=== PATIENT | female | born 1970 | race Caucasian/White ===

== ENCOUNTER 2018-07-25 01:11 | Observation (INO) ==
[2018-07-25] MEDS ORDERED: Aspirin 81 MG TAB.CHEW PO ONE (01:20)
[2018-07-25] MEDS ORDERED: Nitroglycerin 0.4 MG TAB.SUBL SL ONE (01:20)
--- NOTE | 2018-07-25 01:24 | Emergency Department Note ---
Disposition Clinical Impression: Unstable angina pectoris Anemia Qualifiers: Anemia type: unspecified type Qualified Code(s): D64.9 - Anemia, unspecified Chest pain Qualifiers: Chest pain type: unspecified Qualified Code(s): R07.9 - Chest pain, unspecified Disposition: Admitted As Inpatient Condition: Fair Referrals: Keely Lester DO [Primary Care Provider] - Time of Disposition: 02:55 General Adult HPI - General Stated complaint: Possible Heart attack Time Seen by Provider: 07/25/18 01:20 Source: patient Mode of arrival: EMS Limitations: no limitations Nursing Notes Reviewed: Yes Vital Signs Reviewed: Yes - History of Present Illness HPI Narrative: 47-year-old female history of hypertension, CAD with stent 2 years ago presents for evaluation of left shoulder neck pain. Patient states the similar presentation to her prior heart attack. Patient states that symptom onset was around 8:00 this evening. Patient noted left shoulder neck pain. Patient also notes some shortness of breath. No vomiting or diaphoresis. Patient did take 2 nitroglycerin prior to ED arrival and notes pain has improved. Patient denies any abdominal pain. No fevers or cough. No history of DVT or PE. Pain Scale: 2 - Related Data Previous Rx's Medication Instructions Recorded Aspirin 81 mg PO DAILY #30 tab.chew 06/19/16 Clopidogrel [Plavix] 75 mg PO DAILY #30 tablet 06/19/16 Loratadine/Pseudophed (12 HR) 1 each PO BID #20 tab.er.12h 12/20/16 [Claritin D (12HR)] Promethazine/Dextromethorphan 5 ml PO Q6HR PRN #90 ml 03/01/18 [Promethazine-Dm Syrup] Allergies Allergy/AdvReac Type Severity Reaction Status Date / Time No Known Allergies Allergy Verified 03/01/18 10:56 All systems ED: reviewed and negative except as stated. Constitutional: Denies: fever Cardiovascular: Denies: chest pain Respiratory: Reports: dyspnea. 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, bilateral tubal ligation - Social History Smoking Status: Current every day smoker Smokeless Tobacco Status: No Alcohol use: Reports: none Drug use: Reports: none Physical Exam - General Limitations: no limitations General appearance: alert, in no apparent distress, obese - Head Head exam: atraumatic, normocephalic, normal inspection - Eye Eye exam: Present: normal appearance, PERRL, EOMI - ENT ENT exam: normal exam, mucous membranes moist - Neck Neck exam: Present: normal inspection - Chest Chest inspection: Present: normal inspection, symmetric chest wall rise - Respiratory Respiratory exam: Absent: respiratory distress, accessory muscle use - Cardiovascular Cardiovascular exam: Present: regular rate, normal rhythm. Absent: systolic murmur - Abdominal Exam Abdominal exam: Present: soft, Non-Tender - Extremities Exam Extremities exam: Present: normal inspection. Absent: pedal edema - Back Exam Back exam: Present: normal inspection - Neurological Exam Neurological exam: Present: alert, oriented X3, CN II-XII intact - Skin Skin exam: Present: warm, dry, intact, normal color Course Course Narrative: Patient seen and examined. Patient will get cardiopulmonary evaluation with EKG, chest x-ray troponin. Concerning history of unstable angina. Disposition likely admission. - Reevaluation(s) Reevaluation #1: Patient seen and examined. Patient denies any pain. Patient's ED course discussed with her. Patient's agreeable for admission. Time: 02:52 Vital Signs Temperature 98.3 F 07/25/18 01:13 Pulse Rate 96 07/25/18 01:13 Respiratory Rate 17 07/25/18 01:13 Blood Pressure 110/57 07/25/18 01:13 O2 Sat by Pulse Oximetry 100 07/25/18 01:13 Temperature 98.3 F 07/25/18 01:13 Pulse Rate 86 07/25/18 03:07 Respiratory Rate 16 07/25/18 03:07 Blood Pressure 108/72 07/25/18 03:07 O2 Sat by Pulse Oximetry 97 07/25/18 03:07 Oxygen Delivery Oxygen Delivery Room Air Medical Decision Making - [facility] Narrative Medical decision making narrative: Patient's presentation is concerning for unstable angina. Patient pain improved after 2 nitroglycerin prehospital. Patient received aspirin. Patient's been chest pain-free in the ED. Patient's labs reviewed showed no evidence of any acute abnormality. No concerns for PE or dissection. Given the patient's history concerning for unstable angina the patient will be admitted to the hospital service for further continued cardiopulmonary monitoring and evaluation. Patient was agreeable with this plan of care. - Lab Data Lab results reviewed: Yes I reviewed the patient's lab results. Result diagrams: 07/25/18 01:35 07/25/18 01:35 Lab Results 07/25/18 07/25/18 07/25/18 Range/Units 01:35 01:35 01:35 WBC 9.0 (4.3-11.1) K/mcL RBC 4.14 (3.82-4.97) M/mcL Hgb 9.6 L (11.5-15.4) g/dL Hct 32.0 L (35.3-44.9) % MCV 77.3 L (83.0-100.0) fL MCH 23.2 L (28.0-33.3) pg MCHC 30.0 L (31.6-35.5) g/dL RDW 18.7 H (11.5-14.5) % Plt Count 369 (140-400) K/mcL MPV 9.9 (9.4-12.4) fL Immature Gran % 0.3 (0-4) % Seg Neutrophils % 67.2 % Lymphocytes % 23.9 % Monocytes % 5.0 % Eosinophils % 2.9 % Basophils % 0.7 % Neutrophils # 6.0 (1.6-8.9) K/mcL Lymphocytes # 2.1 (0.6-4.6) K/mcL Monocytes # 0.5 (0.0-1.3) K/mcL Eosinophils # 0.3 (0.0-0.6) K/mcL Basophils # 0.1 (0.0-0.2) K/mcL PT 12.6 H (9.4-12.1) Seconds INR 1.1 Sodium 137 (136-145) mEq/L Potassium 3.6 (3.5-5.1) mEq/L Chloride 106 (98-107) mEq/L Carbon Dioxide 25 (23-29) mEq/L BUN 12 (6-20) mg/dL Creatinine 0.75 (0.60-1.20) mg/dL Est GFR ( Amer) > 60 (> 60) Est GFR (Non-Af Amer) > 60 (> 60) BUN/Creatinine Ratio 16 (6-26) Glucose 148 H (70-105) mg/dL Calculated Osmolality 287 (280-300) Calcium 9.0 (8.6-10.3) mg/dL Troponin I < 0.03 (< 0.04) ng/mL - Radiology Data Radiology results reviewed: Yes I reviewed the patient's radiology results. Chest X-Ray 07/25/18 01:20 IMPRESSION: No acute findings. D/ / Vinod Theodore / Vinod Theodore Interpreting Provider: Vinod Theodore - EKG Data EKG #1 EKG attestation: Yes I reviewed and interpreted this EKG. EKG shows normal: sinus rhythm Rate: normal Rhythm: NSR [place]/QRS: normal When compared to previous EKG there are: no significant changes Interpretation: no acute changes, nonspecific ST-T wave changes [place] - [place] Situation: Demographics Background: Presenting Complaint Assessment: Vital Signs, Course and respsone to treatment, Patient/Family Expectation Recommendation: Barrier(s) to disposition, Recommendation based on pending studies, treatments, or consults S.B.ATaj Report Given to: Dr. Sarah Rodriguez Time: 03:19
[2018-07-25 01:44] LABS: Basophils # 0.1 K/mcL (0.0-0.2); Basophils % 0.7 %; Eosinophils # 0.3 K/mcL (0.0-0.6); Eosinophils % 2.9 %; Hemoglobin 9.6 g/dL (11.5-15.4); Immature Granulocytes % 0.3 % (0-4); Lymphocytes # 2.1 K/mcL (0.6-4.6); Lymphocytes % 23.9 %; Mean Corpuscular Hemoglobin 23.2 pg (28.0-33.3); Mean Corpuscular Volume 77.3 fL (83.0-100.0); Mean Platelet Volume 9.9 fL (9.4-12.4); Monocytes # 0.5 K/mcL (0.0-1.3); Platelet Count 369 K/mcL (140-400); Red Blood Count 4.14 M/mcL (3.82-4.97); Red Cell Distribution Width 18.7 % (11.5-14.5); Segmented Neutrophils % 67.2 %
[2018-07-25 01:55] LABS: INR 1.1; Prothrombin Time 12.6 Seconds (9.4-12.1)
[2018-07-25 02:04] LABS: BUN/Creatinine Ratio 16 (6-26); Blood Urea Nitrogen 12 mg/dL (6-20); Carbon Dioxide 25 mEq/L (23-29); Chloride 106 mEq/L (98-107); Glucose 148 mg/dL (70-105); Osmolality,Calculated 287 (280-300); Potassium 3.6 mEq/L (3.5-5.1); Sodium 137 mEq/L (136-145); Troponin I < 0.03 ng/mL (< 0.04); eGFR For Non-African Americans > 60 (> 60)
--- NOTE | 2018-07-25 02:51 | Emergency Department Note ---
Disposition Clinical Impression: Unstable angina pectoris Anemia Qualifiers: Anemia type: unspecified type Qualified Code(s): D64.9 - Anemia, unspecified Chest pain Qualifiers: Chest pain type: unspecified Qualified Code(s): R07.9 - Chest pain, unspecified Disposition: Admitted As Inpatient Condition: Fair General Adult HPI - General Chief complaint: ED Chest Pain Stated complaint: Possible Heart attack Time Seen by Provider: 07/25/18 01:20 Source: patient Mode of arrival: EMS Limitations: no limitations Nursing Notes Reviewed: Yes Vital Signs Reviewed: Yes - History of Present Illness Pain Scale: 2 - Related Data Previous Rx's Medication Instructions Recorded Aspirin 81 mg PO DAILY #30 tab.chew 06/19/16 Clopidogrel [Plavix] 75 mg PO DAILY #30 tablet 06/19/16 Loratadine/Pseudophed (12 HR) 1 each PO BID #20 tab.er.12h 12/20/16 [Claritin D (12HR)] Promethazine/Dextromethorphan 5 ml PO Q6HR PRN #90 ml 03/01/18 [Promethazine-Dm Syrup] Allergies Allergy/AdvReac Type Severity Reaction Status Date / Time No Known Allergies Allergy Verified 03/01/18 10:56 Constitutional: Denies: fever Cardiovascular: Denies: chest pain Respiratory: Reports: dyspnea. 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, bilateral tubal ligation - Social History Smoking Status: Current every day smoker Smokeless Tobacco Status: No Alcohol use: Reports: none Drug use: Reports: none Physical Exam - General Limitations: no limitations General appearance: alert, in no apparent distress, obese Course Vital Signs Temperature 98.3 F 07/25/18 01:13 Pulse Rate 96 07/25/18 01:13 Respiratory Rate 17 07/25/18 01:13 Blood Pressure 110/57 07/25/18 01:13 O2 Sat by Pulse Oximetry 100 07/25/18 01:13 Temperature 98.3 F 07/25/18 01:13 Pulse Rate 86 07/25/18 03:07 Respiratory Rate 07/25/18 03:38 Blood Pressure 95/61 07/25/18 03:38 O2 Sat by Pulse Oximetry 97 07/25/18 03:07 Oxygen Delivery Oxygen Delivery Room Air Medical Decision Making - Medical Records Medical records reviewed: Yes I reviewed the patient's medical records. - Lab Data Lab results reviewed: Yes I reviewed the patient's lab results. Result diagrams: 07/25/18 01:35 07/25/18 01:35 Lab Results 07/25/18 07/25/18 07/25/18 Range/Units 01:35 01:35 01:35 WBC 9.0 (4.3-11.1) K/mcL RBC 4.14 (3.82-4.97) M/mcL Hgb 9.6 L (11.5-15.4) g/dL Hct 32.0 L (35.3-44.9) % MCV 77.3 L (83.0-100.0) fL MCH 23.2 L (28.0-33.3) pg MCHC 30.0 L (31.6-35.5) g/dL RDW 18.7 H (11.5-14.5) % Plt Count 369 (140-400) K/mcL MPV 9.9 (9.4-12.4) fL Immature Gran % 0.3 (0-4) % Seg Neutrophils % 67.2 % Lymphocytes % 23.9 % Monocytes % 5.0 % Eosinophils % 2.9 % Basophils % 0.7 % Neutrophils # 6.0 (1.6-8.9) K/mcL Lymphocytes # 2.1 (0.6-4.6) K/mcL Monocytes # 0.5 (0.0-1.3) K/mcL Eosinophils # 0.3 (0.0-0.6) K/mcL Basophils # 0.1 (0.0-0.2) K/mcL PT 12.6 H (9.4-12.1) Seconds INR 1.1 Sodium 137 (136-145) mEq/L Potassium 3.6 (3.5-5.1) mEq/L Chloride 106 (98-107) mEq/L Carbon Dioxide 25 (23-29) mEq/L BUN 12 (6-20) mg/dL Creatinine 0.75 (0.60-1.20) mg/dL Est GFR ( Amer) > 60 (> 60) Est GFR (Non-Af Amer) > 60 (> 60) BUN/Creatinine Ratio 16 (6-26) Glucose 148 H (70-105) mg/dL Calculated Osmolality 287 (280-300) Calcium 9.0 (8.6-10.3) mg/dL Troponin I < 0.03 (< 0.04) ng/mL - Radiology Data Radiology results reviewed: Yes I reviewed the patient's radiology results. Chest X-Ray 07/25/18 01:20 IMPRESSION: No acute findings. D/ / Vinod Theodore / Vinod Theodore Interpreting Provider: Vinod Theodore - EKG Data EKG #1 EKG attestation: Yes I reviewed and interpreted this EKG. EKG results narrative: EKG shows a normal sinus rhythm with ventricular rate of 91. No acute ST segment elevation or depression. No arrhythmia or ectopy. Attestation Statement - Attestation Attestation: I, Oscar Cole MD, personally evaluated this patient and discussed their management with the resident physician. I reviewed the resident's note and agree with the documented findings, medical decision making, and plan of care. 47-year-old female presents to the emergency department with a complaint of pain in her left shoulder which radiates up into the left side of the neck into the left arm. She denies actual chest pain. She states this is similar to when she had an FL about 2 years ago. She had a stent placed at that time. She did take 2 nitroglycerin at home with some improvement in the pain. On arrival here patient is pain-free. She denies any shortness of breath with the pain. No diaphoresis. No nausea or vomiting. On examination patient is a well-developed well-nourished well-appearing female in no acute distress. She is alert and oriented 3. There is no cyanosis or diaphoresis. Chest is nontender to palpation. Breath sounds are clear and equal bilaterally. Heart regular rate and rhythm. Abdomen soft and nontender with normal bowel sounds. Reviewed. Chest x-ray negative. EKG shows normal sinus rhythm with no acute ischemic changes. The hospitalist, Dr. Smith, was consulted and accepted admission of the patient.
[2018-07-25] MEDS ORDERED: Acetaminophen 325 MG TABLET PO PRN (04:03)
[2018-07-25] MEDS ORDERED: Naloxone 0.4 MG/ML INJ IVP PRN (04:03)
[2018-07-25] MEDS ORDERED: *HR* HYDROcodone/Acet 5/325 mg TABLET PO PRN (04:03)
[2018-07-25] MEDS ORDERED: Nitroglycerin 0.4 MG TAB.SUBL SL PRN (04:19)
[2018-07-25] MEDS ORDERED: *HR* Morphine 2 MG/ML SYRINGE IVP PRN (04:20)
[2018-07-25] MEDS ORDERED: *HR* Promethazine 25 MG/ML VIAL IVP PRN (04:29)
--- NOTE | 2018-07-25 04:33 | Internal Med History&Physical ---
Date of Encounter: 07/25/18 Time of Encounter: 03:30 Internal Medicine - H&P: HPI Chief complaint: CP Admitted From: Emergency Dept Plans for Post Hospital Care: Home History of present illness: Ms. Saravia is a 47 year old female w/PMH of HLD, seasonal allergies, and stent x1 on Plavix presents from the ED w/CC of pain in left shoulder and left neck as well as numbness to upper left arm that began approximately at midnight. No alleviating or aggravating factors. Associated sx: SOB and nausea. Pt. reports hx of previous VA in 06/04 where she had heart cath and stent placement x1. Pt. states current sx are similar to then. Pt. on Plavix for stent placement in 2016. Pt. still reporting sx in ED on exam. Pt. reports cough from smoking but denies recent illness, fever, chills, vomiting, headache, changes in vision, unusual bleeding, abdominal pain, diarrhea, constipation, dizziness, lightheadedness, pre-syncope, or syncope. Past Med Surg Social Fam HX - Past Medical History Source: patient, old records reviewed, obtained from family Medical history: hyperlipidemia, myocardial infarction, other (Seasonal allergies) Additional medical history: unspecified heart problem Psychiatric history: no psych history - Past Surgical History Surgical History: angioplasty/stent (x1 in RCA), (1988) Additional surgical history: cardiac stent placed times 1 - Social History Smoking Status: Current every day smoker Packs per day: 1/2 PPD Smokeless Tobacco Status: No Alcohol use: none Drug use: none Current living situation: Home, With Family Activity Level: Independent ambulation Recent Out of Country Travel Within the Last 8 Weeks: No Exposure or Possible Exposure to Illness During Travel: No - Family History Mother History Unknown: Yes Race: Family Member Ethnicity: Non- Living Status: Still Living Hx Family Cardiac Disorders: Yes (HTN) Father History Unknown: Yes Race: Family Member Ethnicity: Non- Living Status: Age at : 69 Cause of : COPD Hx Family Cardiac Disorders: Yes (HTN, VA) Hx Family Respiratory Disorders: Yes (COPD) Brother History Unknown: Yes Race: Family Member Ethnicity: Non- Living Status: Age at : 26 Cause of : Cystic Fibrosis Hx Family Respiratory Disorders: Yes (Cystic Fibrosis) Sister Race: Family Member Ethnicity: Non- Living Status: Still Living Hx Family Endocrine Disorder: Yes (DM) Internal Medicine - H&P: Meds Aspirin 81 mg PO DAILY #30 tab.chew 06/19/16 [Rx] Clopidogrel [Plavix] 75 mg PO DAILY #30 tablet 06/19/16 [Rx] Loratadine/Pseudophed (12 HR) [Claritin D (12HR)] 1 each PO BID #20 tab.er.12h 12/20/16 [Rx] Promethazine/Dextromethorphan [Promethazine-Dm Syrup] 5 ml PO Q6HR PRN #90 ml 03/01/18 [Rx] Allergy/AdvReac Type Severity Reaction Status Date / Time No Known Allergies Allergy Verified 03/01/18 10:56 All Systems PM: A 10-system review of systems was performed and is negative for pertinent findings except as documented above in the HPI. - Constitutional Constitutional: no chills, no fever(s), no night sweats - EENT Eyes: no change in vision, no discharge, no pain, no photophobia Ears: no ear discharge, no ear pain, no tinnitus Nose, mouth and throat: as per HPI, no dysphagia, no nasal discharge, no neck pa in, no sore throat - Breasts Breasts: as per HPI - Cardiovascular Cardiovascular ROS IM: as per HPI, chest pain, dyspnea, dyspnea on exertion, no diaphoresis, no lightheadedness, no palpitations, no syncope - Respiratory Respiratory: as per HPI, cough, dyspnea, dyspnea on exertion, no wheezing, no excessive phlegm production - Gastrointestinal Gastrointestinal: no abdominal pain, no diarrhea, no hematemesis, no hematochezia, no melena, no nausea, no vomiting - Genitourinary Genitourinary: no change in urinary stream, no dysuria, no flank pain, no hematuria Menstruation: as per HPI - Musculoskeletal Musculoskeletal ROS IM: as per HPI, numbness (Left arm), tingling (Left arm) - Integumentary Integumentary IM: no rash, no unusual bruising - Neurological Neurological ROS: no confusion, no convulsions, no focal weakness, no numbness, no tingling, no tremor(s) - Psychiatric Psychiatric: as per HPI - Endocrine Endocrine IM: as per HPI - Hematologic/Lymphatic Hematologic/Lymphatic: no easy bruising - Allergic/Immunologic Allergic/Immunologic: as per HPI - Constitutional Vitals: Temp Pulse Resp BP Pulse Ox 97.7 F 95 16 112/58 96 07/25/18 04:18 07/25/18 04:18 07/25/18 04:18 07/25/18 04:18 07/25/18 04:18 General appearance: Present: cooperative, mild distress, A&O X 3, pleasant, obese, answers questions appropriately Exam: Patient examined at bedside in ED. Patient reporting continued pain and numbness and left neck and left arm. Patient denies any pain in her chest. Reports SOB and nausea but denies any other complaints or symptoms at this time. VS: 97.7F temp, HR 95, RR 16, BP 112/58, and SPO2 96% on room air. - Head Head exam: Present: atraumatic, normocephalic - Eye Eye exam: Present: PERRL, conjuntiva pink, sclera anicteric Pupils: Present: PERRL - ENT ENT exam: Present: normal exam - Neck Neck exam general surgery: Present: normal inspection, supple, trachea midline. Absent: lymphadenopathy - Respiratory Respiratory exam: Present: CTAB. Absent: accessory muscle use, rales, rhonchi, wheezes - Cardiovascular Cardiovascular exam: Present: RRR, +S1, +S2. Absent: diastolic murmur, gallop, rubs, systolic murmur - GI/Abdominal GI/Abdominal exam: Present: normal bowel sounds, soft, no peritoneal signs. Absent: distended, tenderness - Rectal Rectal exam: Present: deferred - Additional comments: exam deferred. - Extremities Exam Extremities exam: Present: warm, radial pulses palpable and symmetrical. Absent: calf tenderness, cyanotic, pedal edema - Back Exam Back exam: Present: normal inspection - Neurological Exam Neurological exam: Present: alert, CN II-XII intact, oriented X3, no focal deficits. Absent: pronater drift, facial droop, speech deficit - Psychiatric Psychiatric exam: Present: normal affect, normal mood - Skin Skin exam: Present: dry, intact Internal Med - H&P Results - Labs CBC & Chem 7: 07/25/18 01:35 07/25/18 01:35 Labs: Short CBC 07/25/18 Range/Units 01:35 WBC 9.0 (4.3-11.1) K/mcL Hgb 9.6 L (11.5-15.4) g/dL Hct 32.0 L (35.3-44.9) % Plt Count 369 (140-400) K/mcL Neutrophils # 6.0 (1.6-8.9) K/mcL BMP 07/25/18 01:35 Sodium 137 Potassium 3.6 Chloride 106 Carbon Dioxide 25 BUN 12 Creatinine 0.75 Glucose 148 H Calcium 9.0 Cardiac Enzymes 07/25/18 Range/Units 01:35 Troponin I < 0.03 (< 0.04) ng/mL - EKG Data EKG shows normal: sinus rhythm - EKG Data Prior EKG available for review: no EKG comments: 07/25/18 04:39 EKG dated 07/25/18 shows sinus rhythm with normal P axis and a rate of 50-99, abnormal R-wave progression with early transition. - Impressions ITS Impressions Chest X-Ray 07/25/18 01:20 IMPRESSION: No acute findings. D/ / Vinod Theodore / Vinod Theodore Interpreting Provider: Vinod Theodore - Diagnostic Studies Chest x-ray Additional comments: Impressions Chest X-Ray 07/25/18 01:20 IMPRESSION: No acute findings. D/ / Vinod Theodore / Vinod Theodore Interpreting Provider: Vinod Theodore - Assessment and plan (1) Atypical chest pain Current Visit: No Status: Acute Assessment and plan: Acute and atypical CP that pt. reports began at approximately midnight. Pt. reports pain in left shoulder and left neck as well as numbness to upper left arm that began approximately at midnight. No alleviating or aggravating factors. Associated sx: SOB and nausea. Pt. reports hx of previous [facility] in 06/04 where she had heart cath and stent placement x1. Pt. states current sx are similar to then. Pt. on Plavix for stent placement in 2016. Pt. still reporting sx in ED on exam. Hx of VA in 2016 w/stent x1. initial troponin <0.03. Will trend. ASA. 80 mg Lipitor ONCE and will continue Lipitor daily on Thursday. SL nitro PRN. Last Echocardiogram was in 06/04 which showed LVEF of 55% and normal LV chamber size and wall thickness and systolic function, normal left ventricular diastolic function, normal right ventricular structure and function, mild mitral regurgitation, mild tricuspid regurgitation, and no evidence of pulmonary hypertension. Echocardiogram. NPO on Thursday @ 00:01 for a.m. pharm stress test if troponins remain WNL. Morphine IVP ordered for CP. Consider adding Cardiology consult if troponins, Echocardiogram, and/or stress test results abnormal. Pt. is high risk for cardiac event and further morbidity based on current atypical CP, hx of VA w/stent x1 in RCA, familial hx of VA and cardiac risk factors; and personal risk factors of HLD, current tobacco abuse, and current obesity. Obser vation. (2) SOB (shortness of breath) Current Visit: No Status: Acute Assessment and plan: Acute on chronic SOB. Pt. is a current smoker and has smoker's cough present. States SOB accompanied CP sx tonight. Denies home O2 use. Supplemental O2 w/titration and SpO2 monitoring. Robitussin DM for cough. (3) Nausea Current Visit: No Status: Acute Assessment and plan: Acute nausea accompanying CP sx. 12.5 mg IVP Phenergan ordered Q6HR PRN for N/V. (4) Tobacco abuse counseling Current Visit: No Status: Acute Assessment and plan: Acute tobacco counseling provided to pt. on exam. Pt. states she smokes 1/2 PPD and currently takes care of her three grandchildren. Pt. educated on the vasoconstrictive nature of nicotine on the vasculature and the increased risk for VA and cancer. Pt denies need for nicotine patch. (5) HLD (hyperlipidemia) Current Visit: No Status: Chronic Assessment and plan: Hx of chronic HLD. Lipid panel in a.m. labs. Continue pts. Lipitor daily. 80 mg Lipitor ONCE d/t CP. Qualifiers: Hyperlipidemia type: pure hypercholesterolemia Qualified Code(s): E78.00 - Pure hypercholesterolemia, unspecified; E78.0 - Pure hypercholesterolemia (6) Anemia Current Visit: Yes Status: Chronic Assessment and plan: Hx of chronic and intermittent anemia of unknown etiology. Pt. denies unusual rectal bleeding but states that she is currently menstruating and her periods can be heavy. Denies dizziness or SOB. Monitor H/H and f/u labs. Qualifiers: Anemia type: unspecified type Qualified Code(s): D64.9 - Anemia, unspecified (7) Seasonal allergies Current Visit: No Status: Chronic Assessment and plan: Hx of chronic seasonal allergies. 10 mg. Loratadine daily. Qualifiers: Allergic rhinitis trigger: unspecified Qualified Code(s): J30.2 - Other seasonal allergic rhinitis (8) Tobacco abuse Current Visit: No Status: Chronic Assessment and plan: Hx of chronic tobacco abuse. Pt. reports she smokes 1/2 PPD. Denies need for nicotine patch. Tobacco abuse counseling done at bedside. (9) DVT prophylaxis Current Visit: No Status: Acute Assessment and plan: Heparin 5,000 units SQ Q8HR for DVT prophylaxis. Monitor pt. for signs of bleedi ng. - Time Spent With Patient Total time spent is greater than 50% in coordination of care (as documented) at patient's floor/unit and/or counseling patient: Greater than 35 minutes
[2018-07-25] MEDS ORDERED: *HR* Heparin 5,000 UNIT/ML VIAL SQ SCH (06:00)
[2018-07-25 07:31] VITALS: BP 103/64
[2018-07-25] MEDS ORDERED: Loratadine 10 MG TABLET PO SCH (09:00)
[2018-07-25] MEDS ORDERED: Aspirin Enteric Coated 81 MG Tablet PO SCH (09:00)
[2018-07-25 10:29] LABS: Chol/HDL Ratio 5.9 (0-4.9)
--- NOTE | 2018-07-25 10:52 | Discharge Summary ---
- NOTES TO OUTPATIENT PROVIDER Notes to Outpatient Provider: Patient with history of CAD status post PCI to proximal LCx in May 2016 was admitted for atypical chest pain. Serial troponins negative, EKG without ST-T changes. Was offered stress test as an inpatient but she declined and wanted to follow-up with cardiology as an ou tpatient to have it done, despite understanding the risk of possibly missing cardiac ischemia without infarct. She is also noted to have iron deficiency anemia due to menorrhagia and was advised to follow up with gynecology. Give iron supplements as well. Orders not resulted at time of discharge: Pending orders 07/25/18 01:20 ECG 12 lead ECG [ECG] Stat 07/25/18 03:59 EV echocardiogram Routine 07/26/18 04:00 A1C [Hgb A1C] AM 0400 Complete Blood Count [HEME] AM 0400 Comprehensive Metabolic Panel AM 0400 Magnesium AM 0400 07/26/18 04:25 NM blanche perf SPECT multi [NM] Routine 07/26/18 07:00 SP pharm nuclear stress Routine 07/27/18 04:00 Complete Blood Count [HEME] AM 0400 Comprehensive Metabolic Panel AM 0400 07/28/18 04:00 Complete Blood Count [HEME] AM 0400 Comprehensive Metabolic Panel AM 0400 Date of Encounter: 07/25/18 Time of Encounter: 08:15 - Discharge Diagnosis (1) Tobacco abuse Priority: Secondary Status: Chronic (2) DVT prophylaxis Priority: Secondary Status: Acute (3) Seasonal allergies Priority: Secondary Status: Chronic Qualifiers: Allergic rhinitis trigger: unspecified Qualified Code(s): J30.2 - Other seasonal allergic rhinitis (4) Anemia Priority: Secondary Status: Chronic Qualifiers: Anemia type: unspecified type Qualified Code(s): D64.9 - Anemia, unspecified (5) Atypical chest pain Priority: Primary Status: Acute (6) HLD (hyperlipidemia) Priority: Secondary Status: Chronic Qualifiers: Hyperlipidemia type: pure hypercholesterolemia Qualified Code(s): E78.00 - Pure hypercholesterolemia, unspecified; E78.0 - Pure hypercholesterolemia (7) SOB (shortness of breath) Priority: Secondary Status: Acute (8) Nausea Priority: Secondary Status: Acute (9) Tobacco abuse counseling Priority: Secondary Status: Acute Hospital course: Ms. Saravia is a 47 year old female with history of CAD status post PCI to proximal LCx in May 2016 was admitted for atypical chest pain. Serial troponins negative, EKG without ST-T changes. Was offered stress test as an inpatient but she declined and wanted to follow-up with cardiology as an outpatient to have it done, despite understanding the risk of possibly missing cardiac ischemia without infarct. She is also noted to have iron deficiency anemia due to menorrhagia and was advised to follow up with gynecology. Give iron supplements as well. Discharge discussed with: patient, nurse - Time Spent with Patient Total time spent providing and/or coordinating discharge services: 24 mins - Discharge Medications Prescriptions: Ferrous Sulfate 325 mg PO BIDWM #60 tablet Home Medications: Aspirin 81 mg PO DAILY #30 tab.chew 06/19/16 [Rx] Clopidogrel [Plavix] 75 mg PO DAILY #30 tablet 06/19/16 [Rx] Loratadine/Pseudophed (12 HR) [Claritin D (12HR)] 1 each PO BID #20 tab.er.12h 12/20/16 [Rx] Promethazine/Dextromethorphan [Promethazine-Dm Syrup] 5 ml PO Q6HR PRN #90 ml 03/01/18 [Rx] Atorvastatin [Lipitor] 40 mg PO HS tablet 07/25/18 [Rx] Ferrous Sulfate 325 mg PO BIDWM #60 tablet 07/25/18 [Rx] Nitroglycerin 0.4 mg SL Q5MIN PRN tab.subl 07/25/18 [Rx] Allergies/Adverse Reactions: Allergy/AdvReac Type Severity Reaction Status Date / Time No Known Allergies Allergy Verified 03/01/18 10:56 Date of admission: 07/25/18 03:33 Primary care physician: Keely Lester DO Consults: 07/25/18 04:05 Consult to Activities Leader [CONS] Routine Reason for SW Consult: Please assess patient for possible home needs for post-discharge planning. - Constitutional Vitals: Temp Pulse Resp BP Pulse Ox 98.2 F 94 15 103/64 94 07/25/18 07:30 07/25/18 07:30 07/25/18 07:30 07/25/18 07:30 07/25/18 07:30 General appearance: Present: cooperative, mild distress, A&O X 3, pleasant, obese, answers questions appropriately Exam: General: Alert and oriented, not in acute distress. Cardiovascular:Normal S1 & S2, No JVD. Pulse regular. No chest wall tenderness Lungs: clear to auscultation, no wheezes/rales Abdomen:Soft, non-tender, no rigidity. Extremities:No deformity or swelling Neurological:Normal cognition and motor skills. Non-focal - Patient Status Disposition: Home, Self-Care Condition: Fair - Discharge Instructions Instructions: Chest Pain (DC), Anemia (GEN) Follow Up With: Keely Lester DO [Primary Care Provider] - Theresa Heard MD [Partnered Physician] - Forms: ED Satisfaction Letter Additional Instructions: Hx of PCI in 05/[address] Eddie Heard, presented with atypical CP -> declined inpatient stress Follow up outpatient with cardiology for stress - Diet and Activity Activity: resume usual activities as tolerated Diet: low salt diet
--- NOTE | 2018-07-26 16:06 | Electrocardiograph Report ---
[place] [id number] Test Date: 2018-07-25 Pat Name: Elaine Saravia Department: EXAM5 Room: [facility] Gender: F [employer]: : 1970 Requested By: Louie Gardner Order Number: [id number] Reading MD: Natalio Carrington Measurements Intervals [place] Rate: 91 P: 68 [place]: 163 QRS: 66 QRSD: 93 T: 53 QT: 357 QTc: 440 Interpretive Statements Sinus rhythm Abnormal R-wave progression, early transition Electronically Signed On 07-26-2018 16:04:57 EST by Natalio Carrington
== END 2018-07-25 12:11 | disposition home or self-care (01) ==
LOC: EMEROOARM 01:11 → 3NENU 01:11 → SUATTDRO 03:33 → 3NENU 03:42
PROVIDERS: ADMIT Internal Medicine; ATTEND Internal Medicine

== ENCOUNTER 2019-10-15 16:41 | Observation (INO) ==
[2019-10-15] MEDS ORDERED: Aspirin 81 MG TAB.CHEW PO ONE (16:51)
[2019-10-15 17:08] LABS: Basophils # 0.1 K/mcL (0.0-0.2); Basophils % 0.7 %; Eosinophils # 0.2 K/mcL (0.0-0.6); Eosinophils % 1.9 %; Hematocrit 32.3 % (35.3-44.9); Hemoglobin 9.1 g/dL (11.5-15.4); Immature Granulocytes % 0.3 % (0-4); Lymphocytes # 2.2 K/mcL (0.6-4.6); Lymphocytes % 24.9 %; Mean Corpuscular HGB Conc 28.2 g/dL (31.6-35.5); Mean Corpuscular Hemoglobin 20.3 pg (28.0-33.3); Mean Corpuscular Volume 71.9 fL (83.0-100.0); Mean Platelet Volume 10.1 fL (9.4-12.4); Monocytes # 0.5 K/mcL (0.0-1.3); Monocytes % 5.4 %; Neutrophils # 5.9 K/mcL (1.6-8.9); Platelet Count 386 K/mcL (140-400); Red Blood Count 4.49 M/mcL (3.82-4.97); Segmented Neutrophils % 66.8 %; White Blood Count 8.8 K/mcL (4.3-11.1)
[2019-10-15 17:18] LABS: INR 1.2; Prothrombin Time 13.3 Seconds (9.4-12.1)
[2019-10-15 17:29] LABS: BUN/Creatinine Ratio 17 (6-26); Blood Urea Nitrogen 10 mg/dL (6-20); Calcium 8.8 mg/dL (8.6-10.3); Carbon Dioxide 26 mEq/L (23-29); Chloride 104 mEq/L (98-107); Glucose 111 mg/dL (70-105); Osmolality,Calculated 284 (280-300); Potassium 3.6 mEq/L (3.5-5.1); Sodium 137 mEq/L (136-145); Troponin I < 0.03 ng/mL (< 0.04); eGFR For African Americans > 60 (> 60); eGFR For Non-African Americans > 60 (> 60)
[2019-10-15 17:35] LABS: Anisocytosis 1+ (Not Present); Hypochromasia Present (Not Present); Microcytosis Present (Not Present); Platelet Estimate Normal (Normal); Poikilocytosis 1+ (Not Present)
[2019-10-15] MEDS ORDERED: Nitroglycerin 0.4 MG TAB.SUBL SL PRN (18:39)
[2019-10-15] MEDS: Loratadine 10 MG TABLET PO SCH (21:17)
[2019-10-16 04:59] LABS: Basophils # 0.1 K/mcL (0.0-0.2); Basophils % 0.9 %; Eosinophils # 0.3 K/mcL (0.0-0.6); Eosinophils % 2.6 %; Hematocrit 29.5 % (35.3-44.9); Hemoglobin 8.4 g/dL (11.5-15.4); Immature Granulocytes % 0.4 % (0-4); Lymphocytes # 2.8 K/mcL (0.6-4.6); Lymphocytes % 26.2 %; Mean Corpuscular HGB Conc 28.5 g/dL (31.6-35.5); Mean Corpuscular Hemoglobin 20.8 pg (28.0-33.3); Mean Platelet Volume 10.7 fL (9.4-12.4); Monocytes # 0.7 K/mcL (0.0-1.3); Monocytes % 6.3 %; Neutrophils # 6.7 K/mcL (1.6-8.9); Platelet Count 373 K/mcL (140-400); Red Blood Count 4.04 M/mcL (3.82-4.97); Red Cell Distribution Width 19.9 % (11.5-14.5); Segmented Neutrophils % 63.6 %; White Blood Count 10.6 K/mcL (4.3-11.1)
[2019-10-16 05:02] LABS: INR 1.1; Prothrombin Time 12.3 Seconds (9.4-12.1)
[2019-10-16 05:13] LABS: Anisocytosis 1+ (Not Present); Platelet Estimate Normal (Normal)
[2019-10-16 05:14] LABS: Hypochromasia Present (Not Present)
[2019-10-16 05:17] LABS: Alanine Aminotransferase 12 Units/L (7-52); Albumin 3.5 g/dL (3.5-5.7); Albumin/Globulin Ratio 1.2 (1.1-2.2); Alkaline Phosphatase 114 Units/L (34-104); Aspartate Amino Transferase 11 Units/L (13-39); BUN/Creatinine Ratio 19 (6-26); Bilirubin,Total 0.3 mg/dL (0.3-1.0); Blood Urea Nitrogen 11 mg/dL (6-20); Calcium 8.6 mg/dL (8.6-10.3); Carbon Dioxide 25 mEq/L (23-29); Chloride 105 mEq/L (98-107); Globulin 2.9 g/dL (2.4-3.5); Glucose 109 mg/dL (70-105); Magnesium 2.2 mg/dL (1.6-2.6); Osmolality,Calculated 284 (280-300); Potassium 3.8 mEq/L (3.5-5.1); Sodium 137 mEq/L (136-145); Total Protein 6.4 g/dL (6.4-8.9); eGFR For African Americans > 60 (> 60); eGFR For Non-African Americans > 60 (> 60)
[2019-10-16] MEDS ORDERED: Regadenoson 0.4 MG/5 ML SYRINGE IVP ONE (08:59)
[2019-10-16] MEDS: Aspirin 81 MG TAB.CHEW PO SCH (10:44)
[2019-10-16] MEDS: Loratadine 10 MG TABLET PO SCH (10:44)
[2019-10-17 02:06] LABS: Basophils % 0.6 %; Hemoglobin 8.5 g/dL (11.5-15.4); Lymphocytes % 25.8 %; Red Cell Distribution Width 20.1 % (11.5-14.5)
[2019-10-17 02:07] LABS: Basophils # 0.1 K/mcL (0.0-0.2); Eosinophils # 0.2 K/mcL (0.0-0.6); Eosinophils % 2.1 %; Hematocrit 29.6 % (35.3-44.9); Immature Granulocytes % 0.2 % (0-4); Lymphocytes # 2.5 K/mcL (0.6-4.6); Mean Corpuscular HGB Conc 28.7 g/dL (31.6-35.5); Mean Corpuscular Hemoglobin 20.9 pg (28.0-33.3); Mean Corpuscular Volume 72.9 fL (83.0-100.0); Mean Platelet Volume 10.9 fL (9.4-12.4); Monocytes # 0.6 K/mcL (0.0-1.3); Monocytes % 6.6 %; Neutrophils # 6.2 K/mcL (1.6-8.9); Platelet Count 369 K/mcL (140-400); Red Blood Count 4.06 M/mcL (3.82-4.97); Segmented Neutrophils % 64.7 %; White Blood Count 9.6 K/mcL (4.3-11.1)
[2019-10-17 02:23] LABS: BUN/Creatinine Ratio 20 (6-26); Blood Urea Nitrogen 15 mg/dL (6-20); Calcium 8.7 mg/dL (8.6-10.3); Carbon Dioxide 27 mEq/L (23-29); Chloride 104 mEq/L (98-107); Glucose 102 mg/dL (70-105); Osmolality,Calculated 285 (280-300); Sodium 137 mEq/L (136-145); eGFR For African Americans > 60 (> 60); eGFR For Non-African Americans > 60 (> 60)
[2019-10-17 02:24] LABS: Platelet Estimate Normal (Normal)
[2019-10-17 02:25] LABS: Anisocytosis 2+ (Not Present); Hypochromasia Present (Not Present); Microcytosis Present (Not Present)
[2019-10-17] MEDS: Aspirin 81 MG TAB.CHEW PO SCH (07:57)
[2019-10-17] MEDS: Loratadine 10 MG TABLET PO SCH (07:57)
[2019-10-17 11:05] VITALS: BP 105/72
== END 2019-10-17 12:37 | disposition home or self-care (01) ==
LOC: EMEROOARM 16:41 → 3BNU 16:41
PROVIDERS: ADMIT Family Medicine; ATTEND Internal Medicine